=== PATIENT | female | born 1985 | race Caucasian/White ===

== ENCOUNTER 2017-03-30 07:49 | Emergency (ER) | payer OTHER ==
[2017-03-30 09:34] VITALS: BP 138/84
== END 2017-03-30 09:34 | disposition home or self-care (01) ==
LOC: ED 07:49
DX: K04.7 Periapical abscess without sinus (principal); L03.211 Cellulitis of face
CPT/HCPCS: J1885

== ENCOUNTER 2018-02-21 21:54 | Emergency (ER) | payer SELFPAY ==
[~2018-02-21] VITALS: Ht 154.9 cm; Wt 69.8 kg
[2018-02-21 22:08] VITALS: Ht 154.9 cm; Wt 69.8 kg
[2018-02-21 22:42] LABS: BASOPHIL % 0.9 % (0-2); PLATELET COUNT 219 x10^3mcL (130-400); RED CELL DISTRIBUTION WIDTH 13.6 % (11.5-14.5)
[2018-02-21 22:50] LABS: CALCIUM 8.3 mg/dL (8.5-10.1); CARBON DIOXIDE 27.9 mmol/L (21-32); CHLORIDE SERUM 106 mmol/L (98-107); CREATININE SERUM 0.7 mg/dL (0.6-1.0); GFR1 > 60 mL/min; GLUCOSE SERUM 109 mg/dL (74-106); POTASSIUM SERUM 3.5 mmol/L (3.5-5.1); SODIUM SERUM 142 mmol/L (136-145)
[2018-02-21 22:55] LABS: ALBUMIN 3.8 g/dL (3.4-5.0); ALKALINE PHOSPHATASE 56 U/L (46-116); ALT/SGPT 43 U/L (14-59); AST/SGOT 23 U/L (15-37); BILIRUBIN TOTAL 0.2 mg/dL (0.20-1.00); LIPASE 147 IU/L (73-393); TOTAL PROTEIN, SERUM 7.6 g/dL (6.4-8.2)
[2018-02-22] VITALS: BP 105/55
== END 2018-02-22 | disposition home or self-care (01) ==
LOC: ED 21:54
PROVIDERS: Emergency Medicine
DX: R11.10 Vomiting, unspecified (principal); R10.13 Epigastric pain; R05 Cough; R06.02 Shortness of breath; Z88.8 Allergy status to other drugs, medicaments and biological substances
CPT/HCPCS: J1200; J2405; J2930; J3490; J7030